=== PATIENT | female | born 1960 | race Hispanic/Latino ===

== ENCOUNTER 2019-11-28 12:44 | Observation (INO) | payer BC ==
[~2019-11-28] VITALS: Ht 152.4 cm; Wt 71.7 kg
[~2019-11-28 12:44] MED LIST: ALPR0.5T8 PO; BACL10TA PO; HYDR10SY17 PO; HYDR25TA PO; LISI-617 PO; NITR100C9 PO; ONDA-104 PO; TRAM50TA4 PO
[2019-11-28 13:00] VITALS: BP 144/73
[2019-11-28 15:06] LABS: BASOPHILS % (AUTO) 0.6 % (0.0-5.0); EOSINOPHILS % (AUTO) 0.3 % (0.0-8.0); HEMATOCRIT 30.8 % (36-48); LYMPHOCYTES % (AUTO) 20.4 % (21.0-51.0); MEAN CORPUSCULAR HEMOGLOBIN 17.6 pg (27.0-33.0); MEAN CORPUSCULAR HGB CONC 27.6 g/dL (32.0-36.0); MEAN CORPUSCULAR VOLUME 63.9 fL (79-99); MONOCYTES % (AUTO) 6.7 % (3.0-13.0); NEUTROPHILS % (AUTO) 71.9 % (40.0-77.0); PLATELET COUNT (AUTO) 370 K/uL (130-400); RED BLOOD CELL COUNT(AUTO) 4.82 MIL/uL (4.00-5.50); RED CELL DISTRIBUTION WIDTH 18.8 % (11.0-15.5); WHITE BLOOD COUNT (AUTO) 7.7 K/uL (4.8-10.8)
[2019-11-28] MEDS ORDERED: ACETAMINOPHEN 325 MG TAB PO PRN (15:30)
[2019-11-28] MEDS ORDERED: ZOLPIDEM TARTRATE 5 MG TAB PO PRN (15:30)
[2019-11-28] MEDS ORDERED: GUAIFENESIN-DM 200/20 MG 10 ML PO PRN (15:30)
[2019-11-28] MEDS ORDERED: LACTULOSE 20 GM/30 ML UDCUP PO PRN (15:30)
[2019-11-28] MEDS ORDERED: ONDANSETRON HCL 4 MG/2 ML VIAL IVP PRN (15:30)
[2019-11-28] MEDS ORDERED: DIPHENHYDRAMINE HCL 25 MG CAPSULE PO PRN (15:30)
[2019-11-28] MEDS ORDERED: MAG HYDROX/AL HYDROX/SIMETH ES 30 ML SUSP UDCUP PO PRN (15:30)
[2019-11-28 15:50] LABS: % IRON SATURATION 3.5 % (22-44); CREATININE 0.7 mg/dL (0.5-1.5); POTASSIUM 3.8 mmol/L (3.5-5.1)
[2019-11-28 16:00] VITALS: BP 153/81
--- NOTE | 2019-11-28 16:00 | NUR ---
DIRECT ADMISSION . FROM DR MG OFFICE, PT AAO X 3 REVIEW PLAN OF CARE, AND DR. CHRISTIE TO MONITOR . CALL LIGHT IN REACH
[2019-11-28] MEDS: 1/2 NORMAL SALINE 1,000 ML IV SCH (16:18)
--- NOTE | 2019-11-28 17:50 | NUR ---
HGB OF 8.5 HCT OF 30.8 , NO BLOOD TRANSFUSION REQUIRED PER DR. CALLEJAS
[2019-11-28 20:00] VITALS: BP 134/79
[2019-11-28] MEDS: FAMOTIDINE 20MG TAB 20 MG TAB PO SCH (20:15)
[2019-11-28 23:40] VITALS: BP 143/79
[2019-11-29] MEDS ORDERED: LISI-617 PO (01:28)
[2019-11-29] MEDS ORDERED: TRAM50TA4 PO (01:28)
[2019-11-29] MEDS ORDERED: IPRA3AMP24 IH (01:28)
[2019-11-29] MEDS ORDERED: BACL10TA PO (01:29)
[2019-11-29] MEDS ORDERED: TRAMADOL HCL 50 MG TABLET PO PRN (01:30)
[2019-11-29 03:45] VITALS: BP 133/58
[2019-11-29 04:53] LABS: BASOPHILS % (AUTO) 0.5 % (0.0-5.0); EOSINOPHILS % (AUTO) 1.5 % (0.0-8.0); HEMATOCRIT 28.9 % (36-48); LYMPHOCYTES % (AUTO) 26.7 % (21.0-51.0); MEAN CORPUSCULAR HEMOGLOBIN 17.3 pg (27.0-33.0); MEAN CORPUSCULAR HGB CONC 27.3 g/dL (32.0-36.0); MEAN CORPUSCULAR VOLUME 63.2 fL (79-99); MONOCYTES % (AUTO) 9.8 % (3.0-13.0); NEUTROPHILS % (AUTO) 61.3 % (40.0-77.0); PLATELET COUNT (AUTO) 338 K/uL (130-400); RED BLOOD CELL COUNT(AUTO) 4.57 MIL/uL (4.00-5.50); RED CELL DISTRIBUTION WIDTH 18.5 % (11.0-15.5)
[2019-11-29 05:06] LABS: CREATININE 0.7 mg/dL (0.5-1.5); POTASSIUM 3.7 mmol/L (3.5-5.1)
[2019-11-29] MEDS: 1/2 NORMAL SALINE 1,000 ML IV SCH (05:20)
[2019-11-29] MEDS ORDERED: LISINOPRIL 5 MG TABLET PO SCH (09:00)
[2019-11-29] MEDS ORDERED: HYDROCHLOROTHIAZIDE 25 MG TABLET PO SCH (09:00)
[2019-11-29] MEDS ORDERED: ENOXAPARIN SODIUM 40 MG/0.4 ML SYRINGE SQ SCH (09:00)
[2019-11-29 09:07] VITALS: BP 147/73
[2019-11-29] MEDS: FAMOTIDINE 20MG TAB 20 MG TAB PO SCH (09:22)
[2019-11-29 11:44] VITALS: BP 137/64
--- NOTE | 2019-11-29 16:17 | NUR ---
CM NOTE PATIENT TO BE DISCHARGED HOME TODAY. NO NEEDS VERBALIZED BY PRIMARY NURSE, BECKY HARRISON.
[2019-11-29] MEDS ORDERED: BACLOFEN 10 MG TABLET PO SCH (21:00)
== END 2019-11-29 17:00 | disposition home or self-care (01) ==
LOC: EDH 12:44 → EDHIP 12:45 → 3DH 12:46 → 3BH 13:47
PROVIDERS: ADMIT Internal Medicine; ATTEND Internal Medicine
DX: D64.9 Anemia, unspecified (principal); R55 Syncope and collapse; J44.9 Chronic obstructive pulmonary disease, unspecified; K21.9 Gastro-esophageal reflux disease without esophagitis; F41.9 Anxiety disorder, unspecified; Z88.0 Allergy status to penicillin; Z91.041 Radiographic dye allergy status; Z91.013 Allergy to seafood; Z91.012 Allergy to eggs
CPT/HCPCS: 36415 ×2; 80048 ×2; 82607; 82728; 82746; 83540; 83550; 84466; 85025 ×2; 86850; 86900; 86901; 93005; 96361; 96374; 99283; G0378 ×13; J1650; J2405

== ENCOUNTER 2020-09-27 16:08 | Observation (INO) | payer BC ==
[~2020-09-27] VITALS: Ht 152.4 cm; Wt 77.6 kg
[~2020-09-27 16:08] MED LIST changes: -ALPR0.5T8 PO; -HYDR10SY17 PO; +IPRA3AMP24 IH; -LISI-617 PO; +LISI5TAB21 PO; -NITR100C9 PO; -ONDA-104 PO
[2020-09-27 16:51] LABS: BASOPHILS % (AUTO) 0.3 % (0.0-5.0); EOSINOPHILS % (AUTO) 0.7 % (0.0-8.0); HEMATOCRIT 28.3 % (36-48); LYMPHOCYTES % (AUTO) 24.7 % (21.0-51.0); MEAN CORPUSCULAR HEMOGLOBIN 16.4 pg (27.0-33.0); MEAN CORPUSCULAR HGB CONC 26.1 g/dL (32.0-36.0); MEAN CORPUSCULAR VOLUME 62.6 fL (79-99); MONOCYTES % (AUTO) 7.8 % (3.0-13.0); NEUTROPHILS % (AUTO) 66.2 % (40.0-77.0); PLATELET COUNT (AUTO) 409 K/uL (130-400); RED BLOOD CELL COUNT(AUTO) 4.52 MIL/uL (4.00-5.50); RED CELL DISTRIBUTION WIDTH 20.3 % (11.0-15.5); WHITE BLOOD COUNT (AUTO) 6.9 K/uL (4.8-10.8)
[2020-09-27 17:02] LABS: CREATININE 0.7 mg/dL (0.5-1.5); POTASSIUM 3.7 mmol/L (3.5-5.1)
[2020-09-27] MEDS ORDERED: 0.9%NACL 1000ML 1,000 ML IV ONE (17:03)
[2020-09-27 17:06] LABS: BILIRUBIN,TOTAL 0.6 mg/dL (0.2-1.0); TOTAL PROTEIN, SERUM 8.2 g/dL (6.0-8.3)
[2020-09-27 17:08] LABS: INR 1.02 (0.85-1.15); PROTHROMBIN TIME 11.1 SEC (9.6-11.6)
[2020-09-27 17:51] LABS: PARTIAL THROMBOPLASTIN TIME 19.9 SEC (26.3-35.5)
[2020-09-27 17:56] LABS: B-TYPE NATRIURETIC PEPTIDE 50 pg/mL (0-100)
[2020-09-27] MEDS ORDERED: 1/2 NS 1000ML 1,000 ML IV SCH (21:30)
[2020-09-27 21:55] LABS: APPEARANCE,URINE Clear (CLEAR); BILIRUBIN,URINE Negative (NEGATIVE); COLOR,URINE Yellow (YELLOW); GLUCOSE, URINE (UA) Negative (NEGATIVE); KETONES,URINE Trace mg/dL (NEGATIVE); LEUKOCYTE ESTERASE ,URINE Small (NEGATIVE); NITRATE,URINE Negative (NEGATIVE); OCCULT BLOOD,URINE Negative (NEGATIVE); PROTEIN,URINE Negative (NEGATIVE)
[2020-09-27 22:03] LABS: BACTERIA,URINE Few /HPF (None Seen); MUCUS,URINE Few LPF (None Seen); RBC,URINE 0-1 /HPF (0-1); SQUAMOUS EPITHELIAL CELL,UR Many /HPF (0-2)
[2020-09-27 22:55] VITALS: BP 147/68
[2020-09-27] MEDS ORDERED: CLON0.5T4 PO (23:24)
[2020-09-27] MEDS ORDERED: LISINOPRIL 5 MG TABLET ONE (23:33)
[2020-09-28 04:00] VITALS: BP 133/71
[2020-09-28 04:05] LABS: BASOPHILS % (AUTO) 0.5 % (0.0-5.0); HEMATOCRIT 25.3 % (36-48); LYMPHOCYTES % (AUTO) 24.1 % (21.0-51.0); MEAN CORPUSCULAR HEMOGLOBIN 16.5 pg (27.0-33.0); MEAN CORPUSCULAR HGB CONC 26.1 g/dL (32.0-36.0); MEAN CORPUSCULAR VOLUME 63.3 fL (79-99); MONOCYTES % (AUTO) 8.4 % (3.0-13.0); NEUTROPHILS % (AUTO) 64.7 % (40.0-77.0); PLATELET COUNT (AUTO) 373 K/uL (130-400); RED CELL DISTRIBUTION WIDTH 19.9 % (11.0-15.5); WHITE BLOOD COUNT (AUTO) 6.6 K/uL (4.8-10.8)
[2020-09-28 04:18] LABS: CREATININE 0.6 mg/dL (0.5-1.5); POTASSIUM 3.7 mmol/L (3.5-5.1)
[2020-09-28] MEDS ORDERED: DEXTROSE 50%-WATER 50 ML DISP.SYRIN IV PRN (06:45)
[2020-09-28] MEDS ORDERED: GLUCAGON 1MG KIT 1 MG ML IM PRN (06:45)
[2020-09-28] MEDS: INSULIN HUMULIN R 100 UNIT/ML 3ML SQ SCH ×3 (07:30→16:30)
[2020-09-28 08:00] VITALS: BP 97/38
[2020-09-28] MEDS ORDERED: LISINOPRIL 5 MG TABLET PO SCH (09:00)
[2020-09-28] MEDS ORDERED: PANTOPRAZOLE 40 MG/VIAL IVP SCH (09:00)
[2020-09-28 10:23] VITALS: BP 120/61
[2020-09-28 11:21] LABS: HEMATOCRIT 30.2 % (36-48)
[2020-09-28 12:00] VITALS: BP 142/70
[2020-09-28 16:00] VITALS: BP 144/76
== END 2020-09-28 18:00 | disposition home or self-care (01) ==
LOC: EDH 16:08 → EDHIP 21:10 → 3CH 22:54
PROVIDERS: ADMIT Internal Medicine; ATTEND Internal Medicine
DX: D64.9 Anemia, unspecified (principal); Z20.822 Contact with and (suspected) exposure to COVID-19; R19.7 Diarrhea, unspecified; I10 Essential (primary) hypertension; E78.5 Hyperlipidemia, unspecified; E11.9 Type 2 diabetes mellitus without complications; F41.9 Anxiety disorder, unspecified; J44.9 Chronic obstructive pulmonary disease, unspecified; K92.2 Gastrointestinal hemorrhage, unspecified; Z79.899 Other long term (current) drug therapy; Z88.0 Allergy status to penicillin; Z91.012 Allergy to eggs; Z91.013 Allergy to seafood; Z91.041 Radiographic dye allergy status
CPT/HCPCS: 36415 ×2; 71045; 36430; 74176; 80048; 80053; 81001; 82270; 82550; 82948 ×3; 83605; 83690 ×2; 83880; 85014; 85018; 85025 ×2; 85610; 85730; 86850; 86900; 86901; 86923; 87426; 93005; 96374; 99285; C9113; G0378 ×19; J7030; P9016; U0003

== ENCOUNTER 2023-02-18 12:35 | Emergency (ER) | payer BC, OTHER ==
[~2023-02-18] VITALS: Ht 144.8 cm; Wt 78.9 kg
[~2023-02-18 12:35] MED LIST changes: -BACL10TA PO; +CLON0.5T4 PO; -IPRA3AMP24 IH
[2023-02-18 13:27] LABS: BASOPHILS % (AUTO) 0.3 % (0.0-5.0); EOSINOPHILS % (AUTO) 1.8 % (0.0-8.0); HEMATOCRIT 34.8 % (36-48); LYMPHOCYTES % (AUTO) 21.5 % (21.0-51.0); MEAN CORPUSCULAR HEMOGLOBIN 22.1 pg (27.0-33.0); MEAN CORPUSCULAR HGB CONC 30.5 g/dL (32.0-36.0); MEAN CORPUSCULAR VOLUME 72.7 fL (79-99); MONOCYTES % (AUTO) 6.4 % (3.0-13.0); NEUTROPHILS % (AUTO) 69.7 % (40.0-77.0); PLATELET COUNT (AUTO) 299 K/uL (130-400); RED BLOOD CELL COUNT(AUTO) 4.79 MIL/uL (4.00-5.50); RED CELL DISTRIBUTION WIDTH 16.8 % (11.0-15.5); WHITE BLOOD COUNT (AUTO) 8.7 K/uL (4.8-10.8)
[2023-02-18 13:28] VITALS: BP 179/70
[2023-02-18 13:28] LABS: APPEARANCE,URINE CLEAR (CLEAR); BILIRUBIN,URINE NEGATIVE (NEGATIVE); COLOR,URINE LIGHT-YELLOW (YELLOW); GLUCOSE, URINE (UA) NEGATIVE (NEGATIVE); KETONES,URINE NEGATIVE (NEGATIVE); LEUKOCYTE ESTERASE ,URINE NEGATIVE Leu/uL (NEGATIVE); NITRATE,URINE NEGATIVE (NEGATIVE); OCCULT BLOOD,URINE NEGATIVE (NEGATIVE); PROTEIN,URINE NEGATIVE (NEGATIVE); UROBILINOGEN,URINE 0.2 mg/dL (0.2-1.0)
[2023-02-18 13:38] LABS: CREATININE 0.6 mg/dL (0.5-1.5); POTASSIUM 3.9 mmol/L (3.5-5.1)
[2023-02-18] MEDS ORDERED: DICL20GE TP (13:38)
[2023-02-18 13:47] LABS: ALBUMIN 3.4 g/dL (3.5-5.0); TOTAL PROTEIN, SERUM 7.8 g/dL (6.0-8.3)
== END 2023-02-18 13:57 | disposition home or self-care (01) ==
LOC: EDH 12:35
DX: G44.209 Tension-type headache, unspecified, not intractable (principal); I10 Essential (primary) hypertension; Z90.710 Acquired absence of both cervix and uterus; Z79.899 Other long term (current) drug therapy; Z98.890 Other specified postprocedural states; Z88.0 Allergy status to penicillin
CPT/HCPCS: 36415; 80053; 81003; 84484; 85025; 93005

== ENCOUNTER 2023-03-02 20:45 | Inpatient (IN) | payer OTHER ==
[~2023-03-02] VITALS: Ht 144.8 cm; Wt 77.0 kg
[~2023-03-02 20:45] MED LIST changes: +DICL20GE TP
[2023-03-02] MEDS ORDERED: LACTATED RINGERS 1000ML 1,000 ML IV ONE (21:00)
[2023-03-02] MEDS ORDERED: MORPHINE 2 MG SYG IVP ONE (21:00)
[2023-03-02] MEDS ORDERED: ONDANSETRON 4MG INJ IVP ONE (21:00)
[2023-03-02 21:20] LABS: BASOPHILS % (AUTO) 0.5 % (0.0-5.0); EOSINOPHILS % (AUTO) 0.8 % (0.0-8.0); HEMATOCRIT 36.3 % (36-48); LYMPHOCYTES % (AUTO) 18.8 % (21.0-51.0); MEAN CORPUSCULAR HGB CONC 30.9 g/dL (32.0-36.0); MEAN CORPUSCULAR VOLUME 71.3 fL (79-99); MONOCYTES % (AUTO) 7.5 % (3.0-13.0); NEUTROPHILS % (AUTO) 72.2 % (40.0-77.0); PLATELET COUNT (AUTO) 359 K/uL (130-400); RED BLOOD CELL COUNT(AUTO) 5.09 MIL/uL (4.00-5.50); RED CELL DISTRIBUTION WIDTH 16.7 % (11.0-15.5); WHITE BLOOD COUNT (AUTO) 12.5 K/uL (4.8-10.8)
[2023-03-02 21:30] LABS: CREATININE 0.8 mg/dL (0.5-1.5); POTASSIUM 3.8 mmol/L (3.5-5.1)
[2023-03-02 21:35] LABS: ALBUMIN 3.7 g/dL (3.5-5.0); TOTAL PROTEIN, SERUM 8.1 g/dL (6.0-8.3)
[2023-03-02] MEDS ORDERED: IOHEXOL 350 MG/ML 100ML INFUS..BTL IV ONE (22:09)
[2023-03-03] MEDS ORDERED: HYDROMORPHONE 0.5 MG SYG (0.5MG/0.5ML) IVP PRN
[2023-03-03] MEDS ORDERED: ONDANSETRON 4MG INJ IVP PRN
[2023-03-03 01:20] LABS: APPEARANCE,URINE CLEAR (CLEAR); BILIRUBIN,URINE NEGATIVE (NEGATIVE); COLOR,URINE COLORLESS (YELLOW); GLUCOSE, URINE (UA) NEGATIVE (NEGATIVE); KETONES,URINE 5 mg/dL (NEGATIVE); LEUKOCYTE ESTERASE ,URINE NEGATIVE Leu/uL (NEGATIVE); NITRATE,URINE NEGATIVE (NEGATIVE); OCCULT BLOOD,URINE NEGATIVE (NEGATIVE); PH,URINE 7.5 (5.0-8.0); PROTEIN,URINE NEGATIVE (NEGATIVE); UROBILINOGEN,URINE 0.2 mg/dL (0.2-1.0)
[2023-03-03] MEDS ORDERED: LEVOFLOXACIN 500 MG/D5W 100 ML 100 ML IV ONE (07:30)
[2023-03-03 08:37] LABS: BASOPHILS % (AUTO) 0.3 % (0.0-5.0); EOSINOPHILS % (AUTO) 1.6 % (0.0-8.0); HEMATOCRIT 35.8 % (36-48); LYMPHOCYTES % (AUTO) 22.1 % (21.0-51.0); MEAN CORPUSCULAR HEMOGLOBIN 22.2 pg (27.0-33.0); MEAN CORPUSCULAR HGB CONC 30.4 g/dL (32.0-36.0); MEAN CORPUSCULAR VOLUME 72.8 fL (79-99); MONOCYTES % (AUTO) 9.1 % (3.0-13.0); NEUTROPHILS % (AUTO) 66.7 % (40.0-77.0); PLATELET COUNT (AUTO) 303 K/uL (130-400); RED BLOOD CELL COUNT(AUTO) 4.92 MIL/uL (4.00-5.50); RED CELL DISTRIBUTION WIDTH 16.8 % (11.0-15.5); WHITE BLOOD COUNT (AUTO) 9.1 K/uL (4.8-10.8)
[2023-03-03 08:48] LABS: CREATININE 0.6 mg/dL (0.5-1.5); POTASSIUM 3.7 mmol/L (3.5-5.1)
[2023-03-03 08:53] LABS: TOTAL PROTEIN, SERUM 7.1 g/dL (6.0-8.3)
[2023-03-03] MEDS: PANTOPRAZOLE 40 MG/VIAL IVP SCH ×2 (09:08→19:44)
[2023-03-03] MEDS: ENOXAPARIN SODIUM 40 MG/0.4 ML SYRINGE SQ SCH (09:08)
[2023-03-03] MEDS: DEXTROSE 5 %-0.45 % NACL 1,000 ML IV SCH ×2 (13:37)
[2023-03-03 14:30] VITALS: BP 158/72; PULSE 62; RESP 18
[2023-03-03] MEDS ORDERED: LISI20TA24 PO (17:01)
[2023-03-03 20:00] VITALS: BP 159/63; PULSE 60; RESP 17
[2023-03-04] VITALS: BP 146/72; PULSE 62; RESP 17
[2023-03-04 04:00] VITALS: BP 147/61; PULSE 61; RESP 17
[2023-03-04] MEDS: DEXTROSE 5 %-0.45 % NACL 1,000 ML IV SCH ×2 (05:20→14:20)
[2023-03-04 08:00] VITALS: BP 150/79; PULSE 65; RESP 18
[2023-03-04] MEDS: ENOXAPARIN SODIUM 40 MG/0.4 ML SYRINGE SQ SCH (09:11)
[2023-03-04] MEDS: LISINOPRIL 20 MG TABLET PO SCH (09:12)
[2023-03-04] MEDS: PANTOPRAZOLE 40 MG/VIAL IVP SCH ×2 (09:48→21:06)
[2023-03-04 12:00] VITALS: BP 137/72; PULSE 69; RESP 20
[2023-03-04 16:00] VITALS: BP 152/76; PULSE 64; RESP 18
[2023-03-04 20:00] VITALS: BP 156/76; PULSE 63; RESP 18
[2023-03-05] VITALS: BP 138/74; PULSE 69; RESP 18
[2023-03-05] MEDS: DEXTROSE 5 %-0.45 % NACL 1,000 ML IV SCH (02:06)
[2023-03-05 04:00] VITALS: BP 136/66; PULSE 63; RESP 18
[2023-03-05 05:39] LABS: BASOPHILS % (AUTO) 0.3 % (0.0-5.0); EOSINOPHILS % (AUTO) 5.7 % (0.0-8.0); HEMATOCRIT 34.7 % (36-48); LYMPHOCYTES % (AUTO) 22.6 % (21.0-51.0); MEAN CORPUSCULAR HEMOGLOBIN 22.3 pg (27.0-33.0); MEAN CORPUSCULAR VOLUME 74.3 fL (79-99); MONOCYTES % (AUTO) 9.2 % (3.0-13.0); NEUTROPHILS % (AUTO) 61.9 % (40.0-77.0); PLATELET COUNT (AUTO) 282 K/uL (130-400); RED BLOOD CELL COUNT(AUTO) 4.67 MIL/uL (4.00-5.50); RED CELL DISTRIBUTION WIDTH 16.7 % (11.0-15.5); WHITE BLOOD COUNT (AUTO) 6.7 K/uL (4.8-10.8)
[2023-03-05 05:54] LABS: ALBUMIN 2.9 g/dL (3.5-5.0); CREATININE 0.7 mg/dL (0.5-1.5); POTASSIUM 3.5 mmol/L (3.5-5.1); TOTAL PROTEIN, SERUM 6.6 g/dL (6.0-8.3)
[2023-03-05 08:00] VITALS: BP 128/65; PULSE 52; RESP 18
[2023-03-05] MEDS ORDERED: POTASSIUM CHLORIDE 20MEQ/100ML 100 ML IV PRN (08:00)
[2023-03-05] MEDS ORDERED: MAGNESIUM 2GM PREMIX 50ML 50 ML IV SCH (08:00)
[2023-03-05] MEDS ORDERED: POTASSIUM CHLORIDE 10% ELIXIR 20 MEQ/15 ML UDCUP PO PRN (08:00)
[2023-03-05] MEDS: PANTOPRAZOLE 40 MG/VIAL IVP SCH (09:14)
[2023-03-05] MEDS: ENOXAPARIN SODIUM 40 MG/0.4 ML SYRINGE SQ SCH (09:14)
[2023-03-05] MEDS: LISINOPRIL 20 MG TABLET PO SCH (09:14)
[2023-03-05] MEDS: KCL 20 MEQ ERTAB PO PRN ×2 (09:15→12:24)
[2023-03-05 12:00] VITALS: BP 148/72; PULSE 67; RESP 20
== END 2023-03-05 17:30 | disposition home or self-care (01) | DRG 390 ==
LOC: EDH 20:45 → EDHIP 03-03 00:39 → 4BH 03-03 14:56
PROVIDERS: ADMIT Internal Medicine; ATTEND Internal Medicine
PROC: 0D9770Z Drainage of Stomach, Pylorus with Drainage Device, Via Natural or Artificial Opening (ICD-10-PCS; principal; 2023-03-02)
DX: K56.699 Other intestinal obstruction unspecified as to partial versus complete obstruction (principal); E11.9 Type 2 diabetes mellitus without complications; I10 Essential (primary) hypertension; E86.0 Dehydration; Z93.3 Colostomy status
CPT/HCPCS: 36415; 74018; 74177; 80053; 81003; 82150; 82948; 83690; 85025; 93005; C9113; G0378; J1170; J1650; J1956; J2270; J2405; J7120; Q9967

== ENCOUNTER → 2024-09-01 | Outpatient (CLI) | payer OTHER ==
[~2024-09-01] MED LIST changes: -DICL20GE TP; -HYDR25TA PO; +LISI20TA24 PO; -LISI5TAB21 PO
--- NOTE | 2024-09-01 12:55 | HMCIMG ---
CT ABDOMEN/PELVIS W/O CONTRAST REASON: GENERALIZED ABDOMINAL PAIN COMPARISON: None. FINDINGS: Lung bases are clear. There are no focal liver lesions. There are normal-appearing kidneys.. Spleen and pancreas appear unremarkable. There has been a previous cholecystectomy. There is a surgical anastomotic line in the mid sigmoid colon. Bowel loops appear otherwise unremarkable. Loops appear unremarkable. There is no CT evidence of acute appendicitis. There is no evidence of free fluid or intraperitoneal air. There are no focal fluid collections. Aorta and retroperitoneum appear normal as do pelvic soft tissue structures. The anterior abdominal wall is intact. Osseous structures appear unremarkable. IMPRESSION: 1. Absent gallbladder. 2. No acute finding in the abdomen or pelvis. CT was performed with one or more following dose reduction techniques: automated exposure control, adjustment of the mA and kv according to patient's size, or use of a iterative reconstruction technique.
== END | disposition home or self-care (01) ==
LOC: RAH 11:47
PROVIDERS: ATTEND Internal Medicine
DX: R10.84 Generalized abdominal pain (principal); Z90.49 Acquired absence of other specified parts of digestive tract
CPT/HCPCS: 74176

== ENCOUNTER → 2024-10-05 | Outpatient (CLI) | payer OTHER ==
--- NOTE | 2024-10-05 15:10 | HMCIMG ---
DEXA BONE DENSITY SURVEY REASON: ASYMPTOMATIC MENOPAUSL STATE COMPARISON: None TECHNIQUE: DEXA bone densitometry was performed on lumbar spine and left hip. FINDINGS: Mean bone mass density in the spine is 0.940 g present with square, T score -1.0, on the borderline with osteopenia. Femoral neck T score is -1.3, also corresponding with osteopenia. IMPRESSION: 1. Osteopenia indicating a moderate fracture risk.
== END | disposition home or self-care (01) ==
LOC: RAH 11:43
PROVIDERS: ATTEND Internal Medicine
DX: M85.89 Other specified disorders of bone density and structure, multiple sites (principal); Z78.0 Asymptomatic menopausal state
CPT/HCPCS: 77080

== ENCOUNTER → 2025-05-15 | Outpatient (CLI) | payer OTHER ==
[~2025-05-15] MED LIST changes: +GADOTERATE MEGLUMINE 10 MMOL/20 ML VIAL IV ONE
--- NOTE | 2025-05-15 17:33 | HMCIMG ---
EXAM: MR Brain With and Without Intravenous Contrast. CLINICAL HISTORY: Amnesia. TECHNIQUE: Magnetic resonance images of the brain with and without intravenous contrast in multiple planes. CONTRAST: With and without. COMPARISON: None provided. FINDINGS: BRAIN: No restricted diffusion to indicate acute infarction. No intracranial hemorrhage. No midline shift or extra-axial fluid collection. No cerebellar tonsillar ectopia. No abnormal enhancement. The central arterial and venous flow voids are patent. Mild atrophy and mild chronic ischemic changes are present. VENTRICLES: No hydrocephalus. ORBITS: The orbits are normal. SINUSES AND MASTOIDS: The sinuses and mastoid air cells are clear. BONES: No acute fracture or focal osseous lesion. IMPRESSION: 1. No acute intracranial abnormality. 2. Mild atrophy and mild chronic ischemic changes. /[place]
== END | disposition home or self-care (01) ==
LOC: RAH 15:20
PROVIDERS: ATTEND Internal Medicine
DX: I67.82 Cerebral ischemia (principal); G31.9 Degenerative disease of nervous system, unspecified; R41.3 Other amnesia
CPT/HCPCS: 70553; A9575

== ENCOUNTER → 2025-07-26 | Outpatient (CLI) | payer OTHER ==
[~2025-07-26] MED LIST changes: -CLON0.5T4 PO; -GADOTERATE MEGLUMINE 10 MMOL/20 ML VIAL IV ONE; +IOHEXOL-350 50ML VIAL IV ONE; -LISI20TA24 PO; -TRAM50TA4 PO
--- NOTE | 2025-07-27 00:56 | HMCIMG ---
EXAM: CT Head without, and With Intravenous Contrast. CLINICAL HISTORY: Dizziness and giddiness. TECHNIQUE: Axial computed tomography images of the head/brain without and with intravenous contrast. Dose reduction technique was used including one or more of the following: automated exposure control, adjustment of mA and kV according to patient size, and/or iterative reconstruction. Total CTDI volume 98.6. Total exam DLP 1871.40. CONTRAST: With; 49 mL of intravenous iodinated contrast was administered. COMPARISON: Prior MRI of the brain with and without contrast dated 05/16/2025 is available for comparison. FINDINGS: BRAIN: No acute intraparenchymal hemorrhage. No mass lesion. No CT evidence for acute territorial infarct. No midline shift or extra-axial collection. There is prominence of the sulcal spaces, basal cisterns and the ex vacuo dilatation of the ventricular system, suggestive of age appropriate neuroparenchymal volume loss. There are areas of gliosis involving the right frontal lobe with ex vacuo prominence of the adjacent sulci and the frontal horn of the right lateral ventricle. There is atheromatous calcification of the intracranial arteries. There is no abnormal post-contrast enhancement of the neuroparenchyma, ependyma or the meninges. VENTRICLES: No hydrocephalus. ORBITS: The orbits are unremarkable. SINUSES AND MASTOIDS: The paranasal sinuses and mastoid air cells are clear. SOFT TISSUES: No significant facial or scalp soft tissue swelling evident. No radiopaque foreign body is seen. BONES: No acute skull fracture. IMPRESSION: 1. No acute intracranial abnormality. 2. Age appropriate neuroparenchymal volume loss with areas of gliosis involving the right frontal lobe. 3. In comparison with the prior MRI of the brain dated May 16, 2025, frontal lobar gliosis is a new finding since the prior examination. Rest of the chronic findings are stable. /[place]
== END | disposition home or self-care (01) ==
LOC: RAH 07:28
PROVIDERS: ATTEND Internal Medicine
DX: G93.89 Other specified disorders of brain (principal); R42 Dizziness and giddiness
CPT/HCPCS: 70470; Q9967